=== PATIENT | female | born 1935 | race Caucasian/White ===

== ENCOUNTER → 2017-05-25 | Outpatient (CLI) | payer OTHER ==
[~2017-05-25] MED LIST: PREG100C PO; VALS160T28 PO; ZOLP10TA6 PO
== END | disposition home or self-care (01) ==
LOC: OIH 09:43
PROVIDERS: ATTEND Internal Medicine
DX: M79.631 Pain in right forearm (principal)
CPT/HCPCS: 73090

== ENCOUNTER → 2017-09-06 | Outpatient (CLI) | payer OTHER ==
[~2017-09-06] MED LIST changes: -VALS160T28 PO; +VALS160T29 PO
== END | disposition home or self-care (01) ==
LOC: OIH 15:52
PROVIDERS: ATTEND Internal Medicine
DX: M16.11 Unilateral primary osteoarthritis, right hip (principal)
CPT/HCPCS: 73502

== ENCOUNTER → 2023-03-23 | Outpatient (CLI) | payer MEDICARE | END | disposition home or self-care (01) | LOC: RAH 14:07 | PROVIDERS: ATTEND Internal Medicine | DX: N28.1 Cyst of kidney, acquired (principal); R10.9 Unspecified abdominal pain | CPT/HCPCS: 74176 ==